=== PATIENT | female | born 1980 | race Hispanic/Latino ===

== ENCOUNTER 2017-02-01 18:51 | Emergency (ER) | payer MEDICAID, SELFPAY ==
[2017-02-01] MEDS ORDERED: Ibuprofen 800 MG TAB ONE (20:10)
--- NOTE | 2017-02-01 21:08 | RAD ---
PA AND LATERAL CHEST X-RAY 02/01/17 HISTORY: Productive cough for two weeks which worsened last night. COMPARISON: 08/07/14. FINDINGS: The cardiac silhouette and pulmonary vasculature are within normal limits. Lungs are clear. Osseous structures are intact. IMPRESSION: No acute cardiopulmonary process. POS: [facility]
== END 2017-02-01 20:58 | disposition home or self-care (01) ==
LOC: ERS 18:51
DX: J20.9 Acute bronchitis, unspecified (principal)
CPT/HCPCS: 71020; 93005; 94640; 94760; J7620

== ENCOUNTER 2017-03-01 10:21 | Emergency (ER) | payer OTHER, SELFPAY ==
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
[2017-03-01] MEDS ORDERED: Diazepam 5 MG TAB ONE (13:38)
[2017-03-01] MEDS ORDERED: Ketorolac Tromethamine 60 MG/2 ML VIAL ONE (13:39)
== END 2017-03-01 14:05 | disposition home or self-care (01) ==
LOC: ERS 10:21
DX: M54.2 Cervicalgia (principal); V49.40XA Driver injured in collision with unspecified motor vehicles in traffic accident, initial encounter
CPT/HCPCS: 70450; 72125; 93005; 96372; J1885

== ENCOUNTER 2017-12-13 00:17 | Emergency (ER) | payer SELFPAY | END 2017-12-13 01:07 | disposition home or self-care (01) | LOC: ERS 00:17 | DX: S50.01XA Contusion of right elbow, initial encounter (principal); W22.8XXA Striking against or struck by other objects, initial encounter | CPT/HCPCS: 99283 ==

== ENCOUNTER 2018-05-24 14:12 | Emergency (ER) | payer SELFPAY ==
[2018-05-24] MEDS ORDERED: Acetaminophen 325 MG TAB ONE (14:37)
[2018-05-24 14:58] LABS: #Lymphocytes 0.9 thou/uL (1.20-3.40); #Monocytes 0.6 thou/uL (0.11-0.59); #Neutrophils 6.5 thou/uL (1.40-6.50); %Basophils 0.2 % (0.0-1.0); %Eosinophils 0.4 % (0.0-10.0); %Lymphocytes 11.7 % (21.0-51.0); %Monocytes 7.6 % (0.0-10.0); %Neutrophils 80.2 % (42.0-75.0); Hemoglobin 13.5 g/dL (12.0-16.0); Mean Corpuscular HGB CONC 32.6 g/dL (32.0-36.0); Mean Corpuscular Hemoglobin 29.8 pg (27.0-31.0); Mean Corpuscular Volume 91.4 fL (78.0-98.0); Mean Platelet Volume 8.5 fL (7.4-10.4); Platelet Count 213 thou/uL (130-400); RBC Distribution Width 11.5 % (11.5-14.5); Red Blood Cell (RBC) Count 4.52 mill/uL (4.20-5.40)
[2018-05-24 15:18] LABS: ALT (SGPT) 12 U/L (8-55); AST (SGOT) 15 U/L (5-34); Albumin 3.9 g/dL (3.5-5.0); Alkaline Phosphatase 60 U/L (40-150); Anion Gap 14 mmol/L (10-20); BUN (Urea Nitrogen) 16 mg/dL (7.0-18.7); Bilirubin, Total 0.3 mg/dL (0.2-1.2); Calc. Creatinine Clearance 0 mL/min (70-130); Calcium 8.5 mg/dL (7.8-10.44); Carbon Dioxide 18 mmol/L (22-29); Chloride 106 mmol/L (98-107); Estimated GFR-MDRD Greater than 90; Globulin 3.2 g/dL (2.4-3.5); Glucose 110 mg/dL (70-105); Potassium 3.6 mmol/L (3.5-5.1); Protein, Total 7.1 g/dL (6.0-8.3); Sodium 134 mmol/L (136-145)
--- NOTE | 2018-05-24 15:25 | RAD ---
AP CHEST: HISTORY: Syncopal episode. FINDINGS: Heart size and mediastinum are within normal limits. The lungs are clear of infiltrates. There are no significant bony findings. IMPRESSION: No active intrathoracic disease. POS: [facility]
[2018-05-24 15:53] LABS: Pregnancy Test - Urine (BHCG) Negative (Negative); Pregu Control Background? CLEAR/WHITE (CLR/WHITE); Pregu Control Bar Appear? YES (CONTROL BAR); Specific Gravity 1.005 (1.002-1.036)
[2018-05-24] MEDS ORDERED: Ketorolac Tromethamine 30 MG/ML VIAL ONE (16:25)
== END 2018-05-24 17:08 | disposition home or self-care (01) ==
LOC: ERS 14:12
DX: R55 Syncope and collapse (principal); B34.9 Viral infection, unspecified
CPT/HCPCS: 36415; 71045; 80053; 81025; 85025; 87081; 87430; 87804; 93005; 96361; 96374; J1885

== ENCOUNTER 2018-12-23 18:53 | Emergency (ER) | payer SELFPAY | END 2018-12-23 19:10 | disposition home or self-care (01) | LOC: ERS 18:53 | DX: L03.032 Cellulitis of left toe (principal) | CPT/HCPCS: 99283 ==

== ENCOUNTER 2019-01-19 20:26 | Emergency (ER) | payer SELFPAY | END 2019-01-19 21:20 | disposition home or self-care (01) | LOC: ERS 20:26 | DX: B86 Scabies (principal); L29.9 Pruritus, unspecified | CPT/HCPCS: 99283 ==

== ENCOUNTER 2019-02-07 20:38 | Emergency (ER) | payer SELFPAY ==
[2019-02-07 21:10] LABS: Pregnancy Test - Urine (BHCG) POSITIVE (Negative); Pregu Control Background? CLEAR/WHITE (CLR/WHITE); Pregu Control Bar Appear? YES (CONTROL BAR); Specific Gravity 1.021 (1.002-1.036)
[2019-02-07] MEDS ORDERED: Cephalexin 250 MG CAP ONE (21:37)
== END 2019-02-07 21:41 | disposition home or self-care (01) ==
LOC: ERS 20:38
DX: O99.711 Diseases of the skin and subcutaneous tissue complicating pregnancy, first trimester (principal); L03.115 Cellulitis of right lower limb; L03.116 Cellulitis of left lower limb; Z3A.01 Less than 8 weeks gestation of pregnancy
CPT/HCPCS: 81025; 99283

== ENCOUNTER 2019-03-10 21:05 | Emergency (ER) | payer OTHER, SELFPAY ==
[2019-03-10] MEDS ORDERED: Acetaminophen 500 MG TAB ONE (21:31)
--- NOTE | 2019-03-10 23:12 | ULT ---
TRANSABDOMINAL AND ENDOVAGINAL PELVIC ULTRASOUND WITH GRAYSCALE, COLOR FLOW, AND DOPPLER EVALUATION: History: Pelvic pain. FINDINGS: The uterus measures 10.8 x 6.4 x 6.8 cm. The right ovary measures 2.6 x 0.9 x 2.2 cm. The left ovary measures 2.6 x 1.9 x 2.5 cm. Flow is present to both ovaries. A single gestation is seen with measurements corresponding to an estimated gestational age of 8 weeks 3 days. Yolk sac is not visualized. No heart tones are noted. No free fluid is seen in the cul -de-sac. IMPRESSION: Single intrauterine gestation of 8 weeks 3 days estimated gestational age without heart tones. Recommend correlation with serial Beta HCG levels and follow up ultrasound. POS: [facility]
== END 2019-03-10 23:41 | disposition home or self-care (01) ==
LOC: ERS 21:05
DX: O36.4XX0 Maternal care for intrauterine death, not applicable or unspecified (principal); R51 Headache
CPT/HCPCS: 36415; 76856; 84702

== ENCOUNTER 2019-03-18 19:03 | Day surgery (SDC) | payer OTHER ==
[2019-03-18 19:58] LABS: #Basophils 0.1 thou/uL (0.0-0.2); #Eosinphils 0.2 thou/uL (0.0-0.7); #Lymphocytes 3.3 thou/uL (1.20-3.40); #Monocytes 0.5 thou/uL (0.11-0.59); #Neutrophils 4.2 thou/uL (1.40-6.50); %Basophils 0.7 % (0.0-1.0); %Eosinophils 2.6 % (0.0-10.0); %Lymphocytes 39.6 % (21.0-51.0); %Monocytes 5.7 % (0.0-10.0); %Neutrophils 51.4 % (42.0-75.0); Hemoglobin 13.8 g/dL (12.0-16.0); Mean Corpuscular HGB CONC 34.2 g/dL (32.0-36.0); Mean Corpuscular Hemoglobin 31.1 pg (27.0-31.0); Platelet Count 227 thou/uL (130-400); RBC Distribution Width 11.5 % (11.5-14.5); Red Blood Cell (RBC) Count 4.43 mill/uL (4.20-5.40); White Blood Cell (WBC) Count 8.3 thou/uL (4.8-10.8)
[2019-03-18 20:00] LABS: BHCG - Serum POSITIVE (NEGATIVE); Pregs Control Background? CLEAR/WHITE (CLR/WHITE); Pregs Control Bar Appear? YES (CONTROL BAR)
[2019-03-18 20:22] LABS: Bilirubin Negative (Negative); Blood, Urine 1+ (Negative); Clarity Clear (Clear); Glucose, Urine (Dipstick) Normal (Negative); Leukocyte 25 Leu/uL (Negative); Nitrite Negative (Negative); Protein, Urine (Dipstick) Negative (Neg-Trace); RBC/HPF 0-3 HPF (0-3); Squamous Epithelial 0-3 HPF (0-3); Urobilinogen Normal mg/dL (Less than 2); WBC/HPF 0-3 HPF (0-3)
[2019-03-18] MEDS ORDERED: Ondansetron PF 4 MG/2 ML Vial ONE (20:34)
[2019-03-18] MEDS ORDERED: Morphine 4 MG/ML VIAL ONE (20:34)
[2019-03-18 20:35] LABS: Bacteria/HPF 1+ HPF (None Seen)
--- NOTE | 2019-03-18 21:00 | ULT ---
TRANSABDOMINAL PELVIC ULTRASOUND WITH HART SCALE AND COLOR FLOW AND SPECTRAL DOPPLER IMAGING: Date: 03/18/19 HISTORY: No heart tones FINDINGS: The uterus measures 11.9 x 4.8 x 7.4 cm. The right ovary measures 2.1 x 1.4 x 1.2 cm. The left ovary measures 2.8 x 1.8 x 2.4 cm. Flow is demonstrated to both ovaries. The ovaries appear normal. A single intrauterine gestational sac is seen with measurements corresponding to an estimated gestati onal age of 8 weeks and 3 days. The crown-rump length measures 1.78 cm and the gestational sac diamet er is 3.37 cm. No yolk sac or heart tones are identified. No free fluid is seen in the cul-de-s ac. Similar findings were noted on the exam of 03/10/19. IMPRESSION: Findings are suspicious for first trimester demise. POS: [facility]
[2019-03-18] MEDS ORDERED: Fentanyl 100 MCG/2 ML VIAL ONE (23:47)
[2019-03-18] MEDS ORDERED: Lidocaine 2% w/Epinephrine 1:200K 20 ML VIAL ONE (23:49)
[2019-03-18] MEDS ORDERED: Bupivacaine 0.25% HCL 30 ML VIAL ONE (23:49)
[2019-03-19] MEDS ORDERED: Ondansetron PF 4 MG/2 ML Vial ONE (00:07)
[2019-03-19] MEDS ORDERED: Ibuprofen 800 MG TAB PO PRN (02:08)
[2019-03-19] MEDS ORDERED: Ondansetron PF 4 MG/2 ML Vial IVP PRN (02:08)
--- NOTE | 2019-03-19 02:27 | OP ---
DATE OF PROCEDURE: 03/19/2019 PREOPERATIVE DIAGNOSIS: Missed at eight weeks. POSTOPERATIVE DIAGNOSIS: Missed at eight weeks. PROCEDURE: Suction D and C. ANESTHESIA: General. COUNTS: Correct. COMPLICATIONS: None. CONDITION: Stable to recovery room. SPECIMENS: Products of conception. FINDINGS: Anteverted uterus sounded to 11 cm with moderate amount of products of conception removed at the time of suction D and C. DESCRIPTION OF PROCEDURE: Patient is a 38-year-old grand multiparous female with an eight week intrauterine demise diagnosed last week in the clinic. She had been undergoing expectant management and today came to the emergency room, having a lot of cramping. Ultrasound today confirmed IUFD. Patient expressed desire for D and C. She was counseled to the risks and benefits of a suction D and C. Patient expressed understanding and desired to proceed. She was then taken to the operating room and placed under general anesthesia and then placed in dorsal lithotomy position in [facility]. Attention was placed vaginally where with the aid of an operative speculum, the cervix was identified and grasped with a single-tooth tenaculum on the anterior lip. The uterus was sounded to 11 cm. The cervix was dilated to 18-German and a 9 mm suction curette was then introduced into the cavity, passed three times with moderate amount of tissue removal. A sharp curette was then used and all 4 quadrants were noted to feel gritty. A suction curette was then passed two more times. The single-tooth tenaculum was then removed from the anterior lip of the cervix. Hemostasis was achieved with some pressure with a Sponge forceps. At which time, the procedure was completed. Patient was taken out of the lithotomy position, was extubated and taken to recovery room in stable condition. Job ID: [id number]
[2019-03-19] MEDS ORDERED: FLU VACC QS2019-20(6MOS UP)/PF 60 MCG/0.5 ML SYRINGE IM ONE (09:00)
[2019-03-19] MEDS ORDERED: Lidocaine 1% PF 5 ML VIAL ONE (10:10)
[2019-03-19] MEDS ORDERED: Dexamethasone 20 MG/5 ML VIAL ONE (10:10)
[2019-03-19] MEDS ORDERED: ePHEDrine/0.9% NaCl/PF SYRINGE 50 mg/10 ml ONE (10:10)
[2019-03-19] MEDS ORDERED: PHENYLEPHRINE-NS 100 MCG/ML 10 ML SYRINGE ONE (10:10)
[2019-03-19] MEDS ORDERED: PROPOFOL 200 MG/20 ML VIAL ONE (10:10)
--- NOTE | 2019-03-19 11:05 | DIS ---
DATE OF ADMISSION: 03/19/2019 DATE OF DISCHARGE: 03/19/2019 ADMITTING DIAGNOSIS: Status post D and C for missed . DISCHARGE DIAGNOSIS: Status post D and C for missed . PROCEDURE: Suction D and C. CONSULTATIONS: None. HOSPITAL COURSE: The patient is a 38-year-old grand multiparous female who presented to the emergency room with a missed AB, having cramping. In our discussion, patient desired to proceed with a D and C. For complete details, please refer to the operative note. The patient had a D and C, which was uncomplicated and given the lateness of the hour, patient was brought to for extended recovery. This morning, the patient reports that she is doing well. She is tolerating p.o. and is resting. DISCHARGE PHYSICAL EXAMINATION: VITAL SIGNS: This morning blood pressure 93/54, pulse 67, respiratory rate 14, saturating 97% on room air. GENERAL: She appears to be in no acute distress. She is alert, oriented, cooperative, pleasant to interact with. ABDOMEN: Soft, nontender. EXTREMITIES: Nontender with SCDs. The patient is being discharged to home. She has instructions to follow up with Dr. Montez at [facility] in 2 weeks for a followup visit. She will be sent home with 3 days of doxycycline 100 mg twice a day and ibuprofen p.r.n. for pain. Job ID: [id number]
[2019-03-19] MEDS ORDERED: Ondansetron ODT 4 MG TAB PO SCH (11:45)
[2019-03-19 12:07] VITALS: BP 99/54; TEMP 98.4
== END 2019-03-19 12:15 | disposition home or self-care (01) ==
LOC: ERS 19:03 → SDC/OP 03-19 02:21 → 3SW 03-19 03:16 → SDC/OP 03-19 12:15
PROVIDERS: ATTEND Obstetrics & Gynecology
PROC: 10D17ZZ Extraction of Products of Conception, Retained, Via Natural or Artificial Opening (ICD-10-PCS; principal; 2019-03-19)
DX: O02.1 Missed abortion (principal)
CPT/HCPCS: 76856; 81003; 81015; 84702; 84703; 85025; 86900; 86901; 87086; 88305; 93976; J1100; J2001; J2270; J2405; J2704; J3010; J3490; Q0162; S0020

== ENCOUNTER 2020-02-10 09:06 | Outpatient (CLI) | payer OTHER ==
--- NOTE | 2020-02-10 09:58 | ULT ---
Obstetrical ultrasound: 02/10/2020 HISTORY: 39-year-old female undergoing assessment for size and dates TECHNIQUE: Multiplanar grayscale sonographic imaging of the gravid uterus provided. FINDINGS: Maternal adnexa demonstrate no acute findings. Neither ovary could be visualized. Cervical length is 5.1 cm. Placenta located anteriorly with no evidence for previa or abruption. The tip of the placenta is within 1.6 cm of the estimated location of the internal cervical os. A single intrauterine gestation demonstrates a transverse presentation with head to the maternal righ t. intracranial contents, nose and lips, spine, urinary bladder, umbilical cord insertion site, region of kidneys, stomach, four-chamber heart view and umbilical cord appear gross ly unremarkable. heart rate is 142 bpm. Amniotic fluid volume is qualitatively normal. biometry: BPD 5.1 cm 21 weeks 5 days Head circumference 19.3 cm 21 weeks 4 days Abdominal circumference 15.3 cm 20 weeks 4 days Femur length 3.6 cm 21 weeks 3 days Average age based on ultrasound is 21 weeks 3 days. Estimated weight is 392 g +/- 57 g. IMPRESSION: Single intrauterine gestation as detailed above.
== END 2020-02-10 09:07 | disposition home or self-care (01) ==
LOC: BICULT 09:06
PROVIDERS: ATTEND Family Medicine
DX: O09.522 Supervision of elderly multigravida, second trimester (principal); Z3A.21 21 weeks gestation of pregnancy
CPT/HCPCS: 76805

== ENCOUNTER 2020-05-24 17:39 | Day surgery (SDC) | payer MEDICAID, OTHER ==
[2020-05-24 18:13] VITALS: BMI 31.5
[2020-05-24 18:42] LABS: Amnisure Test No Membranes Rupture (No Rupture)
[2020-05-24 18:43] LABS: Amnisure Internal Control QC ACCEPTABLE (ACCEPTABLE)
== END 2020-05-24 20:30 | disposition home health service (06) ==
LOC: EDBD → L&D/OP 17:39
PROVIDERS: ATTEND Family Medicine
DX: O99.891 Other specified diseases and conditions complicating pregnancy (principal); N89.8 Other specified noninflammatory disorders of vagina; O09.523 Supervision of elderly multigravida, third trimester; O09.43 Supervision of pregnancy with grand multiparity, third trimester; Z3A.36 36 weeks gestation of pregnancy
CPT/HCPCS: 84112; 99285

== ENCOUNTER 2020-05-27 20:00 | Day surgery (SDC) | payer MEDICAID, OTHER ==
[2020-05-27] MEDS ORDERED: hydrALAZINE 20 MG/ML VIAL SLOW IVP PRN (20:03)
--- NOTE | 2020-05-27 20:37 | PDOC.LDHP ---
Labor and Delivery H&P Chief complaint: contractions HPI: 39 y/o , patient of Dr. Montez, presents with ctx since yesterday. Also had some spotting yesterday and this morning. Denies heavy VB, LOF, or decreased FM. ROS neg for HEENT, cv, pulm, gi, gu, neuro, psych, skin, musculoskeletal or constitutional symptoms other than mentioned above. OB History Details: 8 prior term SVDs Current complications: other (grandmultiparity) Past Medical History: None Current medications: pre- vitamins Previous surgical history: none Allergies/Adverse Reactions: Allergies Allergy/AdvReac Type Severity Reaction Status Date / Time No Known Allergies Allergy Verified 05/27/20 20:32 Social history: none - Physical Exam Vital signs reviewed and normal: yes General: NAD, resting Lungs: nonlabored breathing Abdomen: gravid Extremeties: no edema FHT: category 1 (130s, mod variability, + accels, no decels) Bruno contractions every: 3-5 mins - Vaginal Exam cm dilated: 2 (posterior) Effacement: 25% Station: -3 - OB Labs Blood type: A RH: positive GBS: positive - Assessment 39 y/o at 37w0d with no e/o active labor. SVE unchanged after 1 hour. status reassuring with reactive NST. - Plan -: D/c home with precautions. Advised to keep all appointments.
[2020-05-27 20:45] VITALS: BP 121/78; TEMP 98.1; BMI 32.1
== END 2020-05-27 21:50 | disposition home or self-care (01) ==
LOC: EDBD → L&D/OP 20:00
PROVIDERS: ATTEND Family Medicine
DX: O47.1 False labor at or after 37 completed weeks of gestation (principal); O26.853 Spotting complicating pregnancy, third trimester; O09.523 Supervision of elderly multigravida, third trimester; Z3A.37 37 weeks gestation of pregnancy; Z86.16 Personal history of COVID-19
CPT/HCPCS: 99283